=== PATIENT | female | born 1990 | race Two or more races ===

== ENCOUNTER 2022-12-04 10:39 | Emergency (ER) | payer MEDICAID ==
[2022-12-04 10:55] VITALS: O2SAT 98
--- NOTE | 2022-12-04 12:22 | ED Physician Documentation ---
History of Present Illness - Stated complaint Stated Complaint: RT SIDE PX/SORE - Chief complaint Chief Complaint: Ext Problem - Additonal information Additional information: 32-year-old female presents emergency department for evaluation of right chest wall axillary and arm pain that simply began when she was talking on the phone with her . She had a similar pain several months ago after sleeping on her right side but denies that she has done that recently. She states that when she lived in [place] she was getting mammograms. However it does not sound as though there was a history of family breast cancer or lumps. She is hoping to get a mammogram today. Denying breast swelling, dimpling inverted nipple or drainage. No cough or fevers. No falls or trauma. No rash. Has not taken anything for symptoms. Patient is PERC negative. No exertional chest pain. Review of Systems Constitutional: denies: Fever Nose: reports: Reviewed and negative Throat: reports: Reviewed and negative Cardiac: reports: Reviewed and negative Respiratory: reports: Reviewed and negative Skin: denies: Rash Musculoskeletal: reports: Other (Right chest wall pain) Neurologic: reports: Reviewed and negative PD PAST MEDICAL HISTORY - Allergies Allergies/Adverse Reactions: Allergies Allergy/AdvReac Type Severity Reaction Status Date / Time No Known Drug Allergies Allergy Verified 12/04/22 10:46 PD ED PE NORMAL - General General: Alert and oriented X 3, No acute distress, Well developed/nourished - HEENT HEENT: Atraumatic, Moist mucous membranes - Neck Neck: Supple, no meningeal sign, No adenopathy, Other (Full range of motion of the neck with no pain with axial loading.) - Cardiac Cardiac: RRR, No murmur - Respiratory Respiratory: No respiratory distress, Clear bilaterally - Back Back: No CVA TTP, No spinal TTP. No: Other (Reproducible tenderness in the right anterior chest and lateral wall without crepitus ecchymosis erythema or rash. No axillary lymphadenopathy appreciated.) - Derm Derm: Normal color, No rash Results - Vitals Vitals: Vital Signs - 24 hr 12/04/22 10:48 Temperature 37 C Heart Rate 100 Respiratory 18 Rate Blood Pressure 127/83 H O2 Saturation 98 Oxygen O2 Source Room air - EKG (time done) 1054 EKG releavant findings:: EKG personally interpreted by author of this note. Relevant findings are: Rate: Rate (enter#) (95) Rhythm: NSR [place]: Normal Intervals: Normal DE QRS: Normal Ischemia: Normal ST segments Compare to prior EKG: Old EKG unavailable Computer interpretation: Agree with computer PD Medical Decision Making - ED course Complexity details: reviewed results, re-evaluated patient, d/w patient ED course: 32-year-old female presents emergency department for evaluation of sudden onset right-sided chest wall pain with radiation down the right arm. Had this intermittently in the past when she slept on her right side but has not done so recently. No falls or trauma. No cough or fevers. She is PERC negative. On exam the pain is reproducible with light pressure. An EKG was nonischemic and sinus rhythm. Given the age and lack of risk factors including no tobacco diabetes or hypertension I have very low suspicion for ACS. Low suspicion for PE as she is PERC negative. Chest x-ray showed no evidence of pneumonia, pneumothorax or pleural effusion. Clinically I am most suspicious for a costochondritis given the reproducible pain. Patient was hoping to get a mammogram though she has no breast tenderness or changes within the tissue suggestive of a malignancy. She is encouraged to follow this concern up with her primary care doctor. The usual emergent return precautions worsening symptoms was discussed. Departure - Departure Disposition: 01 Home, Self Care Clinical Impression: Chest wall pain Condition: Stable Record reviewed to determine appropriate education?: Yes Instructions: ED Chest Pain Costochondritis Comments: You are seen today in the emergency department for pain in the right side of your chest and axilla that radiates down your right arm. As discussed at the bedside your chest x-ray is entirely normal. Your EKG was also normal for age. You do not have any risk factors for pulmonary embolism or heart attack. Because you are able to reproduce the pain with palpation I suspect that the tenderness is due to simply inflammation of the rib wall. I would recommend taking Tylenol 500 mg with food 3 times a day or alternating with ibuprofen 600 mg also with food 2-3 times a day. If you find this does not improve your symptoms please return to the ER. Regarding your concern for needing a mammogram this is something that you will have to follow-up with your primary care doctor as these are not performed through the emergency department. If at any point you develop fevers, have cough, fainting episodes sudden severe shortness of air then please return immediately to the ER. Forms: PCP List
--- NOTE | 2022-12-04 13:05 | XRAY Report ---
PROCEDURE: Chest 1 View X-Ray INDICATIONS: chest pain TECHNIQUE: One view of the chest was acquired. COMPARISON: None. FINDINGS: Surgical changes and devices: None. Lungs and pleura: No pleural effusions or pneumothorax. Lungs are clear. Mediastinum: Mediastinal contours appear normal. Heart size is normal. Bones and chest wall: No suspicious bony lesions. Overlying soft tissues appear unremarkable. IMPRESSION: No acute cardiopulmonary process. Reviewed by: Chris Greenberg on 12/04/2022 1:03 PM PDT Approved by: Chris Greenberg on 12/04/2022 1:03 PM PDT Station ID: [id number]
[2022-12-04 13:24] VITALS: BP 125/75
== END 2022-12-04 13:19 | disposition home or self-care (01) ==
LOC: ED 10:39
DX: R07.89 Other chest pain (principal)
CPT/HCPCS: 93005; 99283; 99284

== ENCOUNTER 2023-01-04 13:05 | Outpatient (CLI) | payer OTHER | END 2023-01-04 13:06 | disposition home or self-care (01) | LOC: LAB.N 13:05 | PROVIDERS: ATTEND Nurse Practitioner | DX: Z33.1 Pregnant state, incidental (principal) | CPT/HCPCS: 36415; 84702 ==

== ENCOUNTER 2023-01-07 13:09 | Outpatient (CLI) | payer OTHER | END 2023-01-07 13:10 | disposition home or self-care (01) | LOC: LAB 13:09 | PROVIDERS: ATTEND Obstetrics & Gynecology | DX: Z33.1 Pregnant state, incidental (principal) | CPT/HCPCS: 36415; 84702 ==

== ENCOUNTER 2023-01-23 12:23 | Outpatient (CLI) | payer OTHER ==
[2023-01-23 12:32] LABS: BILIRUBIN,URINE NEGATIVE (NEGATIVE); GLUCOSE, URINE (UA) NEGATIVE (NEGATIVE); KETONES,URINE (UA) NEGATIVE (NEGATIVE); LEUKOCYTE ESTERASE, URINE TRACE (NEGATIVE); NITRITE,URINE NEGATIVE (NEGATIVE); OCCULT BLOOD,URINE MODERATE (NEGATIVE); PROTEIN,URINE 30 mg/dL (NEGATIVE); UROBILINOGEN,URINE 0.2 (NORMAL) E.U./dL (NORMAL)
[2023-01-23 12:48] LABS: AMORPHOUS SEDIMENT,UR Few /LPF; BACTERIA,URINE Moderate /HPF (None Seen); CLARITY,URINE CLOUDY (CLEAR); MUCUS,URINE Few Strands; RBC,URINE 0-5 /HPF (0-5); SPERM,URINE PRESENT; SQUAMOUS EPITHELIAL CELL,UR FEW Squamous (<= Few); WBC,URINE 0-3 /HPF (0-5)
== END 2023-01-23 12:24 | disposition home or self-care (01) ==
LOC: LAB.WC 12:23
PROVIDERS: ATTEND Obstetrics & Gynecology
DX: Z34.80 Encounter for supervision of other normal pregnancy, unspecified trimester (principal)
CPT/HCPCS: 81001; 87086